=== PATIENT | male | born 1965 | race Caucasian/White ===

== ENCOUNTER → 2024-03-06 08:10 | Day surgery (SDC) | payer MEDICARE, MEDICAID, SELFPAY ==
[2024-03-06 10:19] LABS: Hematocrit 37.3 % (39.0-52.0); Hemoglobin 12.3 g/dL (13.0-18.0); Mean Corpuscular Hgb 31.6 pg (27.0-31.0); Mean Corpuscular Volume 95.9 fL (80.0-94.0); Mean Platelet Volume 9.9 fL (7.4-10.4); Platelet Count 221 10^3/uL (130-400); Red Blood Cell Count 3.89 10^6/uL (4.70-6.10); Red Cell Dist. Width 12.4 % (11.5-14.5); White Blood Cell Count 7.7 10^3/uL (4.8-10.8)
[2024-03-06 11:03] LABS: ALT (SGPT) 22 U/L (0-50); AST (SGOT) 22 U/L (17-59); Albumin 4.3 g/dl (3.5-5.0); Alkaline Phosphatase 89 U/L (38-126); Blood Urea Nitrogen 25 mg/dl (9-20); Calcium 9.5 mg/dl (8.4-10.2); Carbon Dioxide 19 mmol/L (22-30); Chloride 104 mmol/L (98-107); Glucose 96 mg/dl (70-99); Potassium 4.6 mmol/L (3.5-5.1); Sodium 137 mmol/L (135-145); Total Bilirubin 0.5 mg/dl (0.2-1.3); Total Protein 6.8 g/dl (6.3-8.2); eGFR > 60.00
== END ==
LOC: SDSPAT 08:10
PROVIDERS: ATTENDING PHYSICIAN Specialist; FAMILY PHYSICIAN Nurse Practitioner Family
DX: Z01.810 Encounter for preprocedural cardiovascular examination (principal); Z01.812 Encounter for preprocedural laboratory examination
CPT/HCPCS: 93005; 36415; 80053; 85027

== ENCOUNTER 2024-03-08 06:37 | Day surgery (SDC) | payer MEDICARE, MEDICAID, SELFPAY ==
[2024-03-06 14:10] VITALS: BMI 27.9
[2024-03-08] VITALS (19 sets, daily range): BP systolic 78–143; BP diastolic 53–88; BMI 27.9
[2024-03-08] MEDS: NORMOSOL-R/PLASMALYTE-A 1000 IV (09:00)
--- NOTE | 2024-03-08 10:58 | W.PN.ADMIT ---
Progress Note - Admit
Progress Note - Admit
pt s/p cysto/sp tube placement
has urethral lopez and sp tube in place
admitted for hematuria
will observe
[2024-03-08] MEDS: NEO-SYNEPHRINE 250 IV (11:15)
--- NOTE | 2024-03-08 16:49 | PTCARENOTE ---
Pt arrived to 2S in bed. Full assessment completed. Suprapubic site C/D/I, sutures intact, suprapubic draining yellow urine. Indwelling catheter clean and intact draining yellow urine. Bed alarm applied for safety, pt instructed to ring for
assistance. Sister Jamil at bedside, care reviewed and verbalized understanding. Bed locked and in the lowest position, safety maintained. Oriented to room, call hugo in place.
[2024-03-08] MEDS: LOPRESSOR 25 MG PO (17:21)
[2024-03-08] MEDS: GEODON 40 MG PO (17:22)
[2024-03-08] MEDS: LINZESS 145 MCG PO (18:03)
[2024-03-08] MEDS: SENOKOT-S 2 TABLET PO (20:35)
[2024-03-08] MEDS: MAG-TAB SR 84 MG PO (20:35)
[2024-03-08] MEDS: VITAMIN D3 (cholecalciferol) 10 MCG PO (20:35)
[2024-03-08] MEDS: ESKALITH REGULAR RELEASE 300 MG PO (20:35)
[2024-03-08] MEDS: VIBRAMYCIN 100 MG PO (20:35)
[2024-03-08] MEDS: BUSPAR 15 MG PO (20:35)
[2024-03-08] MEDS: COGENTIN 1.5 MG PO (20:35)
[2024-03-09 04:25] VITALS: BP 101/63
[2024-03-09 06:55] VITALS: BP 125/76
[2024-03-09] MEDS: BUSPAR 15 MG PO (08:25)
[2024-03-09] MEDS: PROTONIX 40 MG PO (08:25)
[2024-03-09] MEDS: ZESTRIL 10 MG PO (08:25)
[2024-03-09] MEDS: MAG-TAB SR 84 MG PO (08:25)
[2024-03-09] MEDS: ESKALITH REGULAR RELEASE 300 MG PO (08:25)
[2024-03-09] MEDS: COGENTIN 1.5 MG PO (08:26)
[2024-03-09] MEDS: VITAMIN D3 (cholecalciferol) 10 MCG PO (08:26)
[2024-03-09] MEDS: VIBRAMYCIN 100 MG PO (08:26)
[2024-03-09] MEDS: SEROQUEL 200 MG PO (08:26)
[2024-03-09] MEDS: SENOKOT-S 2 TABLET PO (08:27)
--- NOTE | 2024-03-09 10:37 | W.PN.URO.CBU ---
Today's Communication / Plan
-
discharge
Assessment / Plan
-
s/p sp tube placement
doing well
home today
Diagnosis
-
Date of Service: March 09, 2024
-
Patient Diagnosis:
neurogenic bladder
Post Op Day:
sp tube 03/08
Subjective
-
pt stable
urine clear
i removed urethral lopez this am- sp tube draining clear urine and no leak
Objective
-
Vital Signs
Temp Pulse Resp BP Pulse Ox
97.5 F 78 16 125/76 97
03/09/24 06:55 03/09/24 06:55 03/09/24 06:55 03/09/24 06:55 03/09/24 06:55
Intake and Output
03/08/24 03/09/24 03/10/24
06:59 06:59 06:59
Intake Total 2980 / 2980 700 / 700
Output Total 6150 / 6150 720 / 720
Balance -3170 / -3170 -20 / -20
Intake:
Oral fluids 2880 / 2880 700 / 700
IV fluids (Total) 100 / 100
normosol 100 / 100
Output:
Urine, Lopez 3100 / 3100
Urine, Voided 850 / 850
Suprapubic output 2200 / 2200 720 / 720
Review of Systems
-
Constitutional: No Symptoms
Respiratory: No Symptoms
Cardiac: No Symptoms
Abdomen/GI: No Symptoms
Physical Exam
-
General - no acute distress
Abdomen - soft, non-tender, sp tube site c/d/i
Genitalia - normal
--- NOTE | 2024-03-09 10:38 | W.DS.TRANS ---
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
-
Discharge Instructions:
Sleep Apnea Risk Intermediate
Discharge Diagnosis/Procedures you had a supra-pubic tube placement
Diet No restrictions
Activity No strenuous activity
Additional Activity no lifting more than 10lb for 5 days
Driving Restrictions for one week
Bathing Restrictions OK to Shower
Wound Care change dressing around sp tube site once a day
and as needed- put a glob of neosporin ointment
on insertion site once a day with dressing
change
Instructions:
Stand-Alone Forms:
Changes to Home Medications: No
Discharge Medications:
DC Medications w/original date entered in [email or web address]
benztropine 1 mg tablet 1.5 mg PO BID 03/06/24
buspirone 15 mg tablet 15 mg PO BID 03/06/24
cholecalciferol (vitamin D3) 10 mcg (400 unit) tablet (Vitamin D3) 10 mcg PO BID 03/06/24
cranberry extract 200 mg capsule 200 mg PO BID 03/06/24
lansoprazole 30 mg capsule,delayed release 30 mg PO DAILY 03/06/24
linaclotide 145 mcg capsule (Linzess) 145 mcg PO QPM 03/06/24
lisinopril 10 mg tablet 10 mg PO DAILY 03/06/24
lithium carbonate 300 mg capsule 300 mg PO BID 03/06/24
magnesium 200 mg tablet 400 mg PO BID 03/06/24
magnesium hydroxide 400 mg/5 mL oral suspension (Milk of Magnesia) 30 ml PO PRN PRN constipation 03/06/24
metoprolol tartrate 25 mg tablet 25 mg PO QPM 03/06/24
omega 7-eat-tis-fish oil 1,000 mg (120 mg-180 mg) capsule (Fish Oil) 1 cap PO BID 03/06/24
quetiapine 200 mg tablet 200 mg PO DAILY 03/06/24
quetiapine 300 mg tablet,extended release 24 hr 300 mg PO QPM 03/06/24
sennosides 8.6 mg-docusate sodium 50 mg tablet (Senna Plus) 2 tab-cap PO BID 03/06/24
ziprasidone HCl 40 mg capsule 40 mg PO QPM 03/06/24
Home Medication Changes
Pending Results: No
--- NOTE | 2024-03-09 11:03 | CM ---
Adm. dx - SP tube placement; PMH - Schizophrenia, Bipolor disorder, Paranoid personality disorder
Pt visiting his sister from [place]. Sister is an RN. Sister, Jamil assisted in completing IA
Lives in a longterm in [place] - dINK
Upon d/c will be staying with sister - 2 story home
At baseline - independent with ADL's, prepares meals, ambulates without device
DME - none
SNF/HH - no past hx
has ride at discharge - nephew
PCP - Fatimah Hutchison locally; Estephania Armstrong in [place]
Pharm - [facility]
Plan - anticipate home with family assist
[2024-03-09 11:05] VITALS: BP 115/67
== END 2024-03-09 13:36 | disposition home or self-care (01) ==
LOC: SDS 06:37
PROVIDERS: ATTENDING PHYSICIAN Specialist
DX: N31.9 Neuromuscular dysfunction of bladder, unspecified (principal); R33.9 Retention of urine, unspecified
CPT/HCPCS: 51040; 87070

== ENCOUNTER → 2024-03-20 11:11 | Outpatient (REF) | payer MEDICARE, SELFPAY | LOC: RAD 11:11 | PROVIDERS: ATTENDING PHYSICIAN Nurse Practitioner Adult Health | DX: I73.9 Peripheral vascular disease, unspecified (principal); R60.0 Localized edema; R23.8 Other skin changes; Z82.49 Family history of ischemic heart disease and other diseases of the circulatory system | CPT/HCPCS: 93306; 93922; 93925 ==